=== PATIENT | male | born 1995 | race Caucasian/White ===

== ENCOUNTER 2017-03-13 10:21 | Emergency (ER) | payer MEDICAID ==
--- NOTE | 2017-03-13 11:28 | ER NURSING DOCUMENTATION ---
Nurse's Notes [facility] Name:Vega Vieyra Age:21 yrs Sex:Male :1995 Arrival Date:03/13/2017 Time:10:21 Bed6 Private MD: Diagnosis:Toe Contusion, Unspecified Lesser Toe(s) Presentation: 03/13 10:35 Presenting complaint: Patient states: Patient with toe pain from a hockey injury. lp Transition of care: Home. Notified ED Physician of Dr. Jin notified. 10:35 Acuity: JAVIER 4 lp 10:35 Method Of Arrival: Private Vehicle lp Triage Assessment: 10:36 General: Appears in no apparent distress, Behavior is appropriate for age. Pain: lp Complains of pain in right fifth toe and Right fifth toenail. EENT: No deficits noted. Neuro: No deficits noted. Cardiovascular: No deficits noted. Respiratory: No deficits noted. GI: No deficits noted. : No deficits noted. Derm: No deficits noted. Musculoskeletal: Circulation, motion, and sensation intact Capillary refill < 3 seconds Swelling present in right fifth toe and Right fifth toenail Reports pain in right fifth toe and Right fifth toenail. Injury Description: Hit in toe with a hockey puck. Historical: - Allergies: No known drug Allergies; - Home Meds: 1. None - PMHx: None; - PSHx: Testicular Torsion Repair; - Tetanus: < 10 years. - Ebola Screening: : Patient negative for fever greater than or equal to 101.5 degrees Fahrenheit, and additional compatible Ebola Virus Disease symptoms. Patient denies exposure to infectious person. Patient denies travel to an Ebola-affected area in the 21 days before illness onset. . - Immunization history: Flu Vaccine None. - Social history: Smoking status: Patient states was never smoker of tobacco. Screenin:38 Infectious Disease Risk None. Abuse screen: Denies threats or abuse. Denies injuries lp from another. Nutritional screening: No deficits noted. Assessment: 10:38 See Triage Assessment done by same RN. lp Vital Signs: 10:38 BP 139 / 78; Pulse 58; Resp 16; Temp 97.6(TE); Pulse Ox 96% on R/A; Weight 86.18 kg; lp Height 5 ft. 10 in. (177.80 cm); Pain 5/10; 10:38 Body Mass Index 27.26 (86.18 kg, 177.80 cm) lp ED Course: 10:28 Patient arrived in ED. jl 10:35 Lindsay Borja, RN is Primary Nurse. lp 10:36 Triage completed. lp 10:[address] Jin notified. lp 10:38 Valuables Remains with patient Patient has correct armband on for positive lp identification. Bed in low position. Call light in reach. 10:40 Bruce Jin MD is Attending Physician. tl1 Administered Medications: No medications were administered Outcome: 11:16 Discharge ordered by . tl1 11:27 Discharged to home ambulatory. lp 11:27 Condition: stable 11:27 Instructed on discharge instructions, follow up and referral plans. medication usage. 11:27 Patient left the ED. lp Signatures: Lindsay Borja RN RN Bruce Jin MD MD tl1 Bryce Dash mr Adam, Vineet
--- NOTE | 2017-03-14 08:34 | RADIOLOGY REPORT ---
Three views demonstrate no displaced fracture or dislocation. Joints appear unremarkable. IMPRESSION: No displaced injury. If clinically indicated, further evaluation and/or follow-up may be of benefit. [facility]
--- NOTE | 2017-03-15 11:27 | ER PHYSICIAN DOCUMENTATION ---
Physician Documentation [facility] Name:Vega Vieyra Age:21 yrs Sex:Male :1995 Arrival Date:03/13/2017 Time:10:21 Bed6 Private MD: Bruce Ahumada Disposition: 03/13 12:21 Chart complete. tl1 Disposition: 03/13/17 11:16 Discharged to Home/Self Care. Impression: Toe Contusion, Unspecified Lesser Toe(s). - Condition is Good. - Discharge Instructions: TOE CONTUSION - CONTUSION, Lower Extremity. - Medical Reconciliation form form. - Follow up: Private Physician; When: As needed; Reason: Recheck today's complaints. - Problem is new. - Symptoms have improved. HPI: 10:40 This 21 yrs old Male presents to ER via Private Vehicle with complaints of tl1 Foot Injury - RIGHT FOOT. 10:40 One week ago while wearing hockey skates he was struck in the right lateral toes by a tl1 hockey puck. He has had persistent pain and bruising at the base of his right 5th toe. It is still quite sensitive and painful to walk on so he came in finally to get checked.. Historical: - Allergies: No known drug Allergies; - Home Meds: 1. None - PMHx: None; - PSHx: Testicular Torsion Repair; - Tetanus: < 10 years. - Ebola Screening: : Patient negative for fever greater than or equal to 101.5 degrees Fahrenheit, and additional compatible Ebola Virus Disease symptoms. Patient denies exposure to infectious person. Patient denies travel to an Ebola-affected area in the 21 days before illness onset. . - Immunization history: Flu Vaccine None. - Social history: Smoking status: Patient states was never smoker of tobacco. ROS: 10:40 MS/extremity: Positive for injury or acute deformity, ecchymosis. tl1 10:40 All other systems are negative. Exam: 10:40 Constitutional: This is a well developed, well nourished patient who is awake, alert, tl1 and in no acute distress. 10:40 Head/Face: Normocephalic, atraumatic. tl1 10:40 Cardiovascular: Rate: normal. 10:40 Respiratory: Respirations: normal. 10:40 Musculoskeletal/extremity: Extremities: grossly normal except: noted in the distal lateral side of right foot and proximal lateral 5th toe.: ecchymosis. Vital Signs: 10:38 BP 139 / 78; Pulse 58; Resp 16; Temp 97.6(TE); Pulse Ox 96% on R/A; Weight 86.18 kg; lp Height 5 ft. 10 in. (177.80 cm); Pain 5/10; 10:38 Body Mass Index 27.26 (86.18 kg, 177.80 cm) lp MDM: 10:40 Patient medically screened. tl1 11:00 Differential diagnosis: fracture, sprain, contusuion. Data reviewed: vital signs, tl1 nurses notes, radiologic studies, plain films, and as a result, I will discharge patient. Counseling: I had a detailed discussion with the patient and/or guardian regarding: the historical points, exam findings, and any diagnostic results supporting the discharge/admit diagnosis, radiology results, the need for outpatient follow up, to return to the emergency department if symptoms worsen or persist or if there are any questions or concerns that arise at home. Response to treatment: There is no appreciated change of the patient's symptoms at this time. ED course: No change. ED course: X-ray shows no fracture.. 12 17:21 Order name: FOOT;[address] [place] [id number]; Complete Time: 20:22 EDMS Dispensed Medications: No medications were administered Signatures: Lindsay Borja, RN RN Bruce Franco MD MD tl1
== END 2017-03-13 11:28 | disposition home or self-care (01) ==
LOC: ER 10:21
DX: S90.121A Contusion of right lesser toe(s) without damage to nail, initial encounter (principal); W21.220A Struck by ice hockey puck, initial encounter; Y92.330 Ice skating rink (indoor) (outdoor) as the place of occurrence of the external cause; Y93.22 Activity, ice hockey
CPT/HCPCS: 99281; 99283